=== PATIENT | male | born 2005 | race African-American/Black ===

== ENCOUNTER 2024-06-29 16:38 | Outpatient (CLI) | payer OTHER, SELFPAY ==
--- NOTE | 2024-06-29 17:30 | MR_ITS ---
[address] [address] Phone:?[phone] Fax:?[phone] Referring Physician Information: Heidi Lomeli [address] [facility] [address] Phone:?[phone] Fax:?[phone] Patient:Shira Tabor D.O.B:?2005 Sex:?Male Phone:?[phone] [facility] MRN:?[id number] Exam Date:?06/29/2024 EXAM: MRI of the RIGHT KNEE, without contrast CLINICAL HISTORY: Ongoing right knee pain. 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 COMPARISONS: Plain radiographs 06/25/2024. TECHNICAL: MR sequences of the right knee: sagittals: PD, PDFS coronals: PD, STIR axials: PD, T2 FS CONTRAST: None SEDATION: None FINDINGS: Bones: There are bone marrow contusions of the lateral femoral condyle at the sulcus terminalis and of the proximal posterolateral tibia. Patellofemoral joint: Cartilage: Intact. Retinacula: The medial and lateral retinacula are intact. Fat pads: The infrapatellar, quadriceps, and prefemoral fat pads are unremarkable. Knee joint: Effusion: Large right knee joint effusion. Popliteal cyst: None. Intra-articular bodies: None. Posteromedial corner: The semimembranosus and pes anserine tendons are intact. Medial compartment: Medial meniscus: Slight intermediate proton-density signal within the posterior root of the medial meniscus may reflect mucoid degeneration or mild contusion without evidence of discrete fluid intense medial meniscal tear. Cartilage: Intact. Lateral compartment: Lateral meniscus: Ill-defined tearing of the lateral meniscal superior and inferior popliteomeniscal fascicles/posterior meniscocapsular tissues. Cartilage: Intact. Ligaments: Anterior cruciate ligament: Complete tear. 8 mm of anterior translation of the tibia. Posterior cruciate ligament: Intact. Medial collateral ligament: Grade 3 tears of the proximal portion of the superficial component of the medial collateral ligament and of the deep meniscofemoral component of the medial collateral ligament. Posterior oblique ligament: Intact. Fibular collateral ligament: There is grade 1 sprain injury versus mild grade 2 partial tear injury of the proximal portion of the fibular collateral ligament. Posterolateral corner: The distal biceps femoris tendon, iliotibial band, popliteus tendon, popliteus muscle, popliteofibular ligament, and arcuate ligament are intact. Extensor mechanism: Patellar tendon: Intact. Quadriceps tendon: Intact. IMPRESSION: 1. Complete tear of the anterior cruciate ligament. Associated bone marrow contusions of the lateral femoral condyle at the sulcus terminalis and of the proximal posterolateral tibia. 8 mm of anterior translation of the tibia. 2. Grade 3 tears of the proximal portion of the superficial component of the medial collateral ligament and of the deep meniscofemoral component of the medial collateral ligament. 3. Grade 1 sprain injury versus mild grade 2 partial tear injury of the proximal portion of the fibular collateral ligament. 4. Ill-defined tearing of the lateral meniscal superior and inferior popliteomeniscal fascicles/posterior meniscocapsular tissues. 5. Slight intermediate signal within the posterior root of the medial meniscus may reflect mucoid degeneration or mild contusion but is an equivocal finding. No discrete fluid intense medial meniscal tear. 6. Large right knee joint effusion. RCB Electronically signed on 06/30/2024 9:07:00 AM by Monroe Quinonez M.D.
== END 2024-06-29 16:39 | disposition home or self-care (01) ==
LOC: MRI 16:39
PROVIDERS: Visit Provider Physician Assistant Surgical
DX: M25.561 Pain in right knee (principal); S83.511A Sprain of anterior cruciate ligament of right knee, initial encounter; S83.411A Sprain of medial collateral ligament of right knee, initial encounter; S83.281A Other tear of lateral meniscus, current injury, right knee, initial encounter; M25.461 Effusion, right knee; S89.92XA Unspecified injury of left lower leg, initial encounter
CPT/HCPCS: 73721

== ENCOUNTER 2024-07-13 08:35 | Day surgery (SDC) | payer OTHER, SELFPAY ==
[2024-07-13] VITALS (19 sets, daily range): BP systolic 119–155; BP diastolic 74–101; PULSE 69–807; RESP 14–20; TEMP 35.9–37.2; O2SAT 97–99; BMI 30.2
[2024-07-13] MEDS: SODIUM CHLORIDE 0.9 % (FLUSH) 10 ML SYRINGE IVF (09:20)
[2024-07-13] MEDS: LACTATED RINGERS 1000 ML 1,000 ML 100 ML IV (09:20)
--- NOTE | 2024-07-13 09:20 | W.PM.H&PU ---
History & Physical Update History & Physical Update H&P Reviewed and patient assessed: No changes noted
--- NOTE | 2024-07-13 10:06 | W.ANESCHARGE ---
Anesthesia Charges Start Date/Time Anesthesia Start Date: 07/13/24 Anesthesia Start Time: 10:39 Stop Date/Time Anesthesia Stop Date: 07/13/24 Anesthesia Stop Time: 14:29 Coding CPT Codes CPT Codes: ANESTH KNEE JOINT SURGERY - 85454 ([id number]) P1 - NORMAL HEALTHY PATIENT, QK - CABLE SYSTEMS INSTALLER 2-4 CNCRNT ANES PROC, QX - STOVE INSTALLER SVBry W/ MED DIRECTION
[2024-07-13] MEDS: fentaNYL 100 MCG/2 ML inj IVP (10:14)
[2024-07-13] MEDS: MIDAZOLAM HCL 1 MG/ML inj IVP (10:14)
--- NOTE | 2024-07-13 10:23 | SUR.PREOP ---
TIME?OUT:?1012 PT/RN/MDA?VERIFICATION?OF?SURGICAL?SITE,?PROCEDURE,?AND?CONSENT OBTAINED?PRIOR?TO?INVASIVE?PROCEDURE.
[2024-07-13] MEDS: Heparin 30,000 units/30 ml 30000 UNIT TOPICAL (11:00)
[2024-07-13] MEDS: CEFAZOLIN 2 GM in 0.9 % SODIUM CHLORIDE Mini-bag 100 ML IVPB (11:01)
--- NOTE | 2024-07-13 11:13 | W.PM.NB ---
Nerve Block Nerve Block Time Seen by Provider: 10:18 Date Seen: 07/13/24 Type of block requested by surgeon for post-operative analgesia: popliteal Side: right Time out performed: Yes Verification of patient name: Yes Verification of date of : Yes Site marking: site marked Name of person performing procedure: Zach Continuous monitoring Was continuous monitoring of O2 sat, B/P, hall monitor, recorded every 15 minutes?: Yes Procedure Checklist: sterile prep, needles and gloves Ultrasound guided. Images saved: Yes Medications given in 5ml increments after negative aspiration: Marcaine %: 0.25 mL: 20 Patient tolerated procedure well: Yes Additional comments: Needle noted adjacent to nerve Block Charges Block Charge (with Pro Fee): Sciatic Nerve Use of Ultrasound Machine for Block: Yes- US Guidance/pain block
--- NOTE | 2024-07-13 11:14 | W.PM.NB ---
Nerve Block Nerve Block Time Seen by Provider: 10:18 Date Seen: 07/13/24 Type of block requested by surgeon for post-operative analgesia: adductor canal Side: right Time out performed: Yes Verification of patient name: Yes Verification of date of : Yes Site marking: site marked Name of person performing procedure: Zach Continuous monitoring Was continuous monitoring of O2 sat, B/P, equipment monitor phototypesetting, recorded every 15 minutes?: Yes Procedure Checklist: sterile prep, needles and gloves Ultrasound guided. Images saved: Yes Medications given in 5ml increments after negative aspiration: Marcaine %: 0.25 mL: 15 Needle gauge: 20 Precedex (mcg): 25 Patient tolerated procedure well: Yes Block Charges Block Charge (with Pro Fee): Femoral Nerve Use of Ultrasound Machine for Block: Yes- US Guidance/pain block
--- NOTE | 2024-07-13 12:16 | W.ANESCHARGE ---
Anesthesia Charges Start Date/Time Anesthesia Start Date: 07/13/24 Anesthesia Start Time: 10:39 Stop Date/Time Anesthesia Stop Date: 07/13/24 Anesthesia Stop Time: 14:29 Coding CPT Codes CPT Codes: ANESTH KNEE JOINT SURGERY - 82689 ([id number]) P1 - NORMAL HEALTHY PATIENT, QK - LEAD WEB APPLICATION DEVELOPER 2-4 CNCRNT ANES PROC, QX - ELEVATOR SUPERVISOR SVBry W/ MED DIRECTION
--- NOTE | 2024-07-13 13:48 | PM.ORPRC ---
Procedure Note Date of procedure: 07/13/24 Procedure: PREOPERATIVE DIAGNOSIS: 1. Right knee ACL tear, acute 2. Right knee MCL (extra-articular ligament) tear, grade 3 from near femoral attachment POSTOPERATIVE DIAGNOSIS: 1. Right knee ACL tear, acute 2. Right knee MCL (extra-articular ligament) tear, grade 3 from near femoral attachment PROCEDURE: 1. Right knee ACL arthroscopic reconstruction with independent tunnel drilling (quad tendon autograft with internal brace) 2. Bone graft/bone marrow concentrate harvest from proximal tibia via separate incision (60ml aspirated) 3. Right knee MCL (extra-articular ligament) open repair with internal brace for support SURGEON: Sanjeev Lambert M.D. SPECIALIST MANAGERS: Deangelo Mark PA-C; Tarun ACE. Of note, assistants were critical for this case to aid in patient positioning, knee manipulation, instrument exchange, graft preparation, camera assistance, bone graft harvest, and closure. 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 They experienced a right knee ACL and MCL disruption injury within the last month. MRI at that time confirmed these findings. The patient desires to remain physically active with cutting/pivoting type activitiies/sports. Accordingly, surgery was indicated. FINDINGS: Exam under anesthesia revealed positive Gordy's showing grade 2 B. Positive pivot shift with a grade 2. Grade 2-3 opening to valgus stress at 20?. Anteromedial drawer with external rotation of the leg produced no significant change from the contralateral side indicating no posteromedial corner injury. Negative dial test. The diagnostic arthroscopy showed relatively healthy articular cartilage throughout all 3 compartments. The medial and lateral menisci were intact and robust. The ACL was torn with positive empty wall sign. PCL was intact and robust. DESCRIPTION OF PROCEDURE: After a thorough discussion of risks, benefits, and alternatives, the patient was brought to the operating room and placed upon the operating table. Induction of anesthesia was undertaken as previously noted. 2g IV Ancef was administered within 1 hr of incision preoperatively. Appropriate time-out was performed identifying proper patient, site, and procedure. The right lower extremity was prepped and draped in the appropriate sterile fashion using ChloraPrep. Prior to tourniquet inflation, a small incision was made just lateral to tibial tubercle with a 15 blade scalpel. The Arthrex Lenard bone marrow aspiration trocar was then inserted and directed posterior and slightly proximal. 60 mL bone marrow aspiration was completed in a heparinized syringe. The volume was drawn to total 60ml of fluid for centrifugation. This was then spun in a centrifuge and bone marrow concentrate later utilized. This concentrate was mixed with Allosync Pure DBM and the autograft bone captured in the graft net device from tunnel drilling. This mixture was eventually placed into the sockets that were created for the ACL graft, as described below. After the bone marrow aspiration, the limb was exsanguinated and tourniquet inflated. A transverse incision was made approximately 1 cm proximal to the superior pole of the patella. We excised the subcutaneous fat sharply. The quad tendon was then visualized from the patellar attachment all the way more proximal towards its muscular transition. A 10mm double blade was utilized to sharply incise the quad tendon from the superior pole of patella as it was directed more proximally. This was done under direct visualization. We released it from the patella and placed it through the quad pro tendon harvester. (A partial-thickness quad tendon graft was able to be harvested due to the robustness of the patient's quad.) This was turned in quarter turns slowly with proximal directed force. We passed this up approximately 65-68 mm of tendon. The tendon was then retrieved out the side hole and the quad pro cutting mechanism engaged with a robust quad tendon harvested of approximately that same target length. The quad was reapproximated with # 2-0 Stratafix in a running, locking fashion. Meanwhile, the graft was then prepared on the back table. Anterolateral and anteromedial portals were established with an 11 blade, and a diagnostic arthroscopy was performed. This identified the findings as noted above. Following the diagnostic arthroscopy the remaining ACL graft fibers were debrided with the shaver. Our attention was turned to ACL tunnel creation/preparation. Thus, a FlipCutter was utilized with a 9.5 mm graft measured and thus the same size hole created in both the femur (9.5 mm) and tibia (9.5 mm) with separate guides for independent tunnel drilling technique. After preparing the graft and drilling the tunnels, the button was passed out the lateral femoral cortex and confirmed to be flipped and apposed against the cortex with C-arm fluoroscopic imaging. After the button was passed, we utilized the autograft/allograft mixture which included autograft bone captured from the ACL tunnel drilling with the Arthrex Graft Net, the bone marrow autograft obtained from the proximal tibial plateau from the original incision over the proximal anterolateral tibia with the trocar, and the Allosync Pure demineralized bone matrix. This mixture of autograft and allograft was passed into the ACL tunnels with a beveled cannula under direct visualization. Then, the ACL graft was passed without difficulty first into the femoral socket and finally dunked into the tibial socket. After cycling the knee 35+ times with tension on the tibial sutures, we secured the tibial side internal brace sutures with the knee in full extension utilizing the peek SwiveLock suture anchor after drilling this, tapping and placing the anchor. Thereafter, the tibial ABS button was applied and secured with the knee in approximately 5? of flexion and a slight posterior drawer applied. The knee again was cycled and complete tension finalized on the femoral side again with the knee at 5? of flexion and a posterior drawer applied. A Gordy test was performed again, and found to be stable. The graft was reprobed on the inside of the knee and again found to be taut and stable. The shaver was also utilized to ensure all remaining bony debris was evacuated from the medial and lateral compartments as well as suprapatellar pouch. We then turned our attention to the MCL open repair. A curvilinear incision was made along the medial aspect of the knee extending from just proximal to the medial femoral epicondyle down towards the MCL insertion on the proximal tibia approximately 6 cm distal to the joint line. Sharp incision through skin and blunt dissection through the subcutaneous tissues allowed us to identify and protect crossing neurologic structures. The sartorial fascia was split longitudinally and the pes tendons were identified and mobilized for us to pass our internal brace deep to this. We also identified the MCL borders including the anterior posterior aspects. This was mobilized from the surrounding tissue to confirm its location. After identifying hematoma at the medial femoral epicondyle and releasing the MCL at its torn site immediately distal to the medial femoral epicondyle, we were able to improve the tissue mobility of the MCL itself. It still had deep conditions at the medial meniscus/medial capsule at the joint line, which was appropriate. 2 separate knee FiberTak anchors were secured at the medial femoral epicondyle and just slightly proximal posterior for MCL repair and internal brace isometry. 1st an anchor was placed with a SutureTape and FiberTape pre-loaded. Then, the other anchor it to knotless mechanisms pre-loaded. A separate SutureTape was passed through the MCL as proximal extent and its 2 tails passed through this knotless mechanism allowing tension oval MCL reapproximation towards the medial femoral epicondyle. The other 2 tails from the 1st anchor SutureTape were passed and tied. Excellent reapproximation of the tissue was achieved back to the MCL femoral origin. The internal brace sutures were then passed over the top of the MCL but deep to the pes tendons towards the posterior aspect of the distal MCL insertion on the proximal tibia. This was drilled, tapped, and a peek anchor placed to secure the internal brace. Of note, the MCL was repaired in approximately 20-30 degrees of knee flexion, varus, and neutral rotation. Internal brace was secured in a similar knee orientation. At this stage, re-examination of the knee showed excellent stability with both Gordy's, anterior drawer, and valgus stress. Closure was completed with 2-0 Stratafix for the sartorial fascial reapproximation. 2-0 Vicryl, 2-0 Stratafix, and 4-0 Monocryl to close the subcutaneous and subcuticular layers, respectively. Dressings were applied, tourniquet deflated, the patient awoken from anesthesia and transferred to the PACU in stable condition. PLAN: 1. Toe-touch weightbear operative extremity. Crutch / walker ambulation assistance PRN until quad control present at which time may advance to weightbear as tolerated if brace locked in full extension when she is more alert. 2. Ice, acetominophen and/or ibuprofen, and oxycodone for pain as needed. 3. Knee range of motion and quad sets/straight leg raise regularly, guided by physical therapy. 4. Follow up with PA visit in 1-2 weeks for a wound check.
[2024-07-13] MEDS: MEPERIDINE 25 MG/ML INJ 12.5 MG IVP (14:31)
[2024-07-13] MEDS: fentaNYL 100 MCG/2 ML inj 50 MCG IVP (14:51)
[2024-07-13] MEDS: hydrOXYzine pamoate 25 MG CAPSULE PO (15:40)
[2024-07-13] MEDS: OXYCODONE 5 MG TABLET PO (15:40)
[2024-07-13] MEDS: ACETAMINOPHEN 325 MG TABLET PO (16:40)
--- NOTE | 2024-07-13 16:57 | SUR.PHASEII ---
Patient tolerated yogurt and water, no nausea, pain at a 4, it's tolerable on discharge.
== END 2024-07-13 16:45 | disposition home or self-care (01) ==
LOC: OR 08:36
PROVIDERS: PCP Family Medicine; Visit Provider Orthopaedic Surgery Sports Medicine
PROC: (CPT 29888; principal; 2024-07-13 10:15)
DX: S83.511A Sprain of anterior cruciate ligament of right knee, initial encounter (principal); S83.411A Sprain of medial collateral ligament of right knee, initial encounter; G89.18 Other acute postprocedural pain
CPT/HCPCS: 29888; 27427; 20902; 01400; 64445; 64447; 73560; 76942; A9270; C1713; J0665; J0690; J1100; J1630; J1644; J2175; J2250; J2405; J2704; J3010; J7120; L1833; Q4125

== ENCOUNTER 2024-08-05 16:21 | Emergency (ER) | payer OTHER, SELFPAY ==
--- NOTE | 2024-08-05 | CRLHL7_ITS ---
For Patients: As a result of the Century Cures Act, medical imaging exams and procedure reports are released immediately into your electronic medical record. You may view this report before your referring provider. If you have questions, please contact your health care provider. INDICATION: Recent procedure, leg swelling, pain, numbness, injury of right knee, surgery TECHNIQUE: Ultrasound venous duplex right lower extremity. Real-time zhao-scale (B mode 2D), color Doppler, and spectral Doppler imaging were performed with compression and augmentation. COMPARISON: None FINDINGS: Deep vein: The right common femoral, femoral, popliteal, and visualized calf veins are fully compressible, demonstrate normal color flow, and normal response to mechanical augmentation. The Duplex Doppler waveforms are normal in appearance. Superficial vein: The visualized greater saphenous and superficial veins of the leg and calf are unremarkable. Soft tissue: No masses or cysts are identified. No adenopathy is seen. IMPRESSION: 1. No sonographic evidence of acute deep venous thrombosis seen. Dictated by: Eddie Arboleda MD @ 08/05/2024 18:37:58 (Electronically Signed)
[2024-08-05 16:34] VITALS: BP 128/85; PULSE 89; RESP 18; TEMP 36.9; O2SAT 97; BMI 30.2
--- NOTE | 2024-08-05 18:54 | ED_ITS ---
HPI - General Adult General Date Seen: 08/05/24 Chief complaint: Lower Extremity Swelling Stated complaint: Possible blood clot R leg Time Seen by Provider: 08/05/24 17:26 Source: patient Mode of arrival: ambulatory Limitations: no limitations History of Present Illness HPI narrative: patient is a 19-year-old presenting to the emergency department for pain to his right lower leg. He had a surgery here in [place] on 07/13/2024 for ACL and MCL repair. Has been in a knee brace since then and was noticing some pain to the knee and into the calf for the past few days so was told to come in to be evaluated for a blood clot. Has not noticed any shortness of breath. Denies fevers, chills, weakness, numbness, chest pain. Denies symptoms like this before. Has not noticed any swelling. No other concerns noted. Related Data Home Medications ?Medication ?Instructions ?Recorded ?Confirmed acetaminophen 325 mg tablet 650 mg PO Q6H PRN 07/21/24 08/05/24 (Tylenol) ondansetron 4 mg disintegrating 4 mg PO Q8H PRN nausea/vomiting 08/05/24 08/05/24 tablet Previous Rx's ?Medication ?Instructions ?Recorded Adult Wheelchair #1 ea 07/16/24 Allergies Allergy/AdvReac Type Severity Reaction Status Date / Time aspirin Allergy Severe Anaphylaxis Verified 08/05/24 16:42 ibuprofen Allergy Severe swelling Verified 08/05/24 16:42 of face Review of Systems Narrative: Pertinent systems reviewed and were negative unless stated in HPI PFSH PFSH Medical History Anxiety and depression ?F41.9 - Anxiety disorder, unspecified (ICD-10) ?F32.A - Depression, unspecified (ICD-10) Left ankle sprain ?S93.402A - Sprain of unspecified ligament of left ankle, initial encounter (ICD-10) Surgical History History of repair of anterior cruciate ligament of right knee (07/13/24) ?Z98.890 - Other specified postprocedural states (ICD-10) Family History Paternal Grandfather CHF (congestive heart failure) Sister Bipolar disorder Mother Thyroid mass of unclear etiology High blood pressure Maternal Grandmother High blood pressure Social History Narrative: Single, student of political science at [employer] no kids, from [facility] [employer] [facility] 2023 Exercises 3 to 4 times a week rugby, gym boxing Nonsmoker; Occasional vaping 3 alcoholic drinks a week Occasional marijuana What is your current living situation?: I presently have a place to live Problems where you live: no known problems In the past 12 months, utilities in danger of being shut off: no In past 12 months, lack of transportation kept you from medical appts, meetings, work, or getting things needed for daily living: no In the past 12 mos, have been you worried that your food would run out before you had money to buy more?: never true In the past 12 mos, the food you bought just didn't last and you didn't have money to buy more?: never true Smoking Status: Never smoker Do you use any of these nicotine containing products: E-Cigarettes Second hand tobacco smoke exposure: No How often do you have a drink containing alcohol: 2-3 times a week Alcohol type: beer, wine and hard liquor How many standard drinks containing alcohol do you have on a typical day: 1 or 2 How often do you have six or more drinks on one occasion: Never AUDIT-C Alcohol total score: 3 Non-prescribed substance use: marijuana (any form) Non-prescribed substance use details: occ. Caffeine: No How often does anyone, including family, friends and others, physically hurt you : rarely How often does anyone, including family, friends and others, insult or talk down to you: rarely How often does anyone, including family, friends and others, threaten you with harm: rarely How often does anyone, including family, friends and others, scream or curse at you: rarely Health Related Social Needs: Other personal risk factors, not elsewhere classified (Z91.89) Exam Narrative: Exam Narrative: Const: Well-nourished, Well-developed, in Now distress Eyes: PERRL, no conjunctival injection, and symmetrical lids HENT: Atraumatic external nose and ears. Moist mucous membranes. MSK:Extremities w/o deformity, some tenderness noted to right calf mostly on the lateral aspect. Skin: Warm, Dry. No rashes or lesions. Neuro: Normal Muscle tone, No focal neurological deficits. Psych: Awake, Alert, & Oriented x3. Appropriate mood and affect. Const: Vital Signs, click to edit/add: Vital Signs - 24 hr 08/05/24 16:34 Temperature 98.4 F Pulse Rate [Right Pulse Oximeter] 89 Respiratory Rate 18 Blood Pressure [Ri ght Upper Arm] 128/85 Pulse Oximetry 97 Oxygen Delivery Me thod Room Air Course Vital Signs Vital signs: Initial Vital Signs Temperature 98.4 F 08/05/24 16:34 Temperature Source Temporal Artery Scan 08/05/24 16:34 Pulse Rate 89 08/05/24 16:34 Pulse Rhythm Regular 08/05/24 16:34 Pulse Strength 3+ Normal 08/05/24 16:34 Respiratory Rate 18 08/05/24 16:34 Blood Pressure 128/85 08/05/24 16:34 Blood Pressure Mean 99 08/05/24 16:34 Blood Pressure Position Sitting 08/05/24 16:34 Pulse Oximetry 97 08/05/24 16:34 Oxygen Delivery Method Room Air 08/05/24 16:34 Vital Signs Temperature 98.4 F 08/05/24 16:34 Pulse Rate 89 08/05/24 16:34 Respiratory Rate 18 08/05/24 16:34 Blood Pressure 128/85 08/05/24 16:34 Pulse Oximetry 97 08/05/24 16:34 Oxygen Delivery Method Room Air 08/05/24 16:34 Temperature 98.4 F 08/05/24 16:34 Pulse Rate 89 08/05/24 16:34 Respiratory Rate 18 08/05/24 16:34 Blood Pressure 128/85 08/05/24 16:34 Pulse Oximetry 97 08/05/24 16:34 Oxygen Delivery Method Room Air 08/05/24 16:34 Medical Decision Making MDM Narrative Medical decision making narrative: Patient is a 19-year-old male presenting for concerns of a blood clot. He does have a leg brace and was told not to bend his leg. I did speak to the PA on-call, Bridget, she states he can bend the knee up to 90? which will allow us to do a ultrasound to check for blood clots. The ultrasound came back negative. He is otherwise doing well at this time. Cannot say what exactly is causing his pain but he is safe for discharge. Discharge Plan Discharge Clinical Impression: Leg pain, right Patient Disposition: Home, Self-Care Condition: Stable Additional Instructions: continue to follow your home recovery program provided by orthopedic provider. Return for new or worsening symptoms. Make sure to follow-up with your orthopedic provider. Prescriptions: No Action acetaminophen [Tylenol] 325 mg tablet 650 mg PO Q6H PRN (DME) Adult Wheelchair Misc See Rx Instructions .Route Qty: 1 0RF Rx Instructions: As directed ondansetron 4 mg tablet,disintegrating 4 mg PO Q8H PRN (Reason: nausea/vomiting) Follow Up/Referrals: Gabrielle Boyle MD [Primary Care Provider] - Stand Alone Forms: [facility] Info Instructions
== END 2024-08-05 20:26 | disposition home or self-care (01) ==
PROVIDERS: Emergency Provider Student in an Organized Health Care Education/Training Program; PCP Family Medicine
DX: M79.661 Pain in right lower leg (principal)
CPT/HCPCS: 93971; 99283